=== PATIENT | female | born 1985 | race Caucasian/White ===

== ENCOUNTER → 2023-09-10 06:37 | Day surgery (SDC) | payer BC, SELFPAY | LOC: GI 06:37 | PROVIDERS: ATTENDING PHYSICIAN Internal Medicine Gastroenterology | DX: K29.50 Unspecified chronic gastritis without bleeding (principal); K22.89 Other specified disease of esophagus; R13.10 Dysphagia, unspecified; R10.13 Epigastric pain | CPT/HCPCS: 43239; 88305; 88342 ==

== ENCOUNTER → 2023-10-06 09:23 | Outpatient (REF) | payer BC, SELFPAY | LOC: HWRAD 09:23 | PROVIDERS: ATTENDING PHYSICIAN Internal Medicine Gastroenterology; FAMILY PHYSICIAN Family Medicine | DX: R10.13 Epigastric pain (principal) | CPT/HCPCS: 74177; Q9967 ==

== ENCOUNTER → 2024-06-22 15:20 | Outpatient (REF) | payer SELFPAY ==
[2024-06-23 18:28] LABS: Hepatitis B Surface Antibody Positive
== END ==
LOC: CLAB 15:20
PROVIDERS: ATTENDING PHYSICIAN Emergency Medicine
DX: Z02.1 Encounter for pre-employment examination (principal)
CPT/HCPCS: 36415; 86706

== ENCOUNTER 2024-09-16 11:28 | Emergency (ER) | payer BC, SELFPAY ==
[2024-09-16 11:29] VITALS: BP 162/113
[2024-09-16 11:59] VITALS: BMI 22.0
--- NOTE | 2024-09-16 12:10 | ED.GENMED ---
History of Present Illness
General
Chief Complaint: Abdominal Pain
Time Seen by Provider: 09/16/24 11:57
History of Present Illness
History of Present Illness:
39-year-old woman presenting to the emergency department abdominal pain. Patient states that for the past year she has had vague right upper quadrant abdominal pain. She had a full workup done including EGD ultrasound and CT scan did not show
anything acute. Last week she noticed some vague back pain at that was a kidney stone so she stayed hydrated. Yesterday after eating fish tacos she noticed that she had worsening right upper quadrant pain with nausea. No fevers chills. No
vomiting. No diarrhea. No alcohol use. No medication adjustments. No issues with her gallbladder that she is aware of. She did finish her period 2 days ago.
Past History
Past History
ED Past Medical History: Hypothyroidism
ED Past Surgical History: None
Social History
Tobacco: Non-smoker
Phy Exam
Physical Exam
Physical Exam:
GENERAL: in no acute distress
HEENT: normocephalic, extraocular movements intact, moist oral mucosa
NECK: normal inspection
RESPIRATORY: no respiratory distress, clear to auscultation bilaterally
CARDIOVASCULAR: regular rate and rhythm
ABDOMEN/: soft, non-distended, right upper quadrant tenderness palpation with guarding, no CVA tenderness
EXTREMITIES: non-tender, no edema/swelling
NEUROLOGIC: awake and alert, moves all extremities
SKIN: warm
Course
Orders/Labs/Results
Orders:
Orders
09/16/24 12:09
Ondansetron Orally Disint [Zofran Odt (Orally Disintegrating)] 4 mg PO NOW STA
US Abdomen Complete/Upper Urgent
Comment:
Reason For Exam: RUQ pain
09/16/24 12:10
Test Result ONCE
09/16/24 12:25
Complete Blood Count/With Diff Urgent
Comprehensive Metabolic Panel Urgent
HCG, Serum Qualitative Screen Urgent
Lipase Urgent
Urinalysis Reflex To Culture Urgent
Date Specimen was Collected: 09/16/24
Time Specimen was Collected: 12:20
Urine Microscopic Reflex Cult Urgent
Abnormal Lab Results
09/16/24
12:25
MPV 11.0 H fL
(7.4-10.4)
Glucose 107 H mg/dl
(70-99)
Ur Occult Blood Reflex 4+ A
(Negative)
Urine RBC 7-10 A /HPF
(0-2)
Urine Bacteria (Reflex) Few A
(Negative)
09/16/24 12:25
09/16/24 12:25
Vital Signs
Initial and Last Documented VS:
Initial Vital Signs
Temp Pulse Resp BP Pulse Ox
98.3 F 106 16 162/113 99
09/16/24 11:29 09/16/24 11:29 09/16/24 11:29 09/16/24 11:29 09/16/24 11:29
Last Documented Vital Signs
Temp Pulse Resp BP Pulse Ox
98.3 F 106 16 162/113 99
09/16/24 11:29 09/16/24 11:29 09/16/24 11:29 09/16/24 11:29 09/16/24 11:29
MDM/Problems Addressed
Differential Diagnosis Includes:
Patient is a 39-year-old woman presenting to the emergency department with right upper quadrant abdominal pain with associated nausea that has worsened for the past day. Vitals unremarkable and exam does show right upper quadrant tenderness to
palpation with guarding. Differential consists of cholecystitis versus biliary colic versus pancreatitis versus urine or kidney stone though less likely. Will check blood work urine ultrasound and give antiemetics. I did offer pain control
however patient declined at this time.
*Critical Care Note
Total Time (30-74mins, 75-104mins- exclusive of procedures): Not Applicable
Update Note
Update Note:
On reevaluation nausea has improved. Blood work is unremarkable. Ultrasound is negative. She did have some blood in her urine. This is likely consistent from the kidney stone that she was having earlier. There is no hydronephrosis and normal
creatinine. Patient is tolerating p.o. Will discharge patient at this time with follow-up and return precautions
ED Attending Note
-
Portions of this chart may have been created with voice recognition software.� Occasional wrong word or��sound alike� substitutions may have occurred due to the inherent limitations of voice recognition software.
Discharge Plan
Departure
Patient Disposition: Home (Routine Discharge)
Date of Disposition: 09/16/24
Time of Disposition: 14:55
Patient with high blood pressure during this ER visit?: No
Discharge Problem:
Abdominal pain
Instructions: Abdominal Pain
Prescriptions:
New
ondansetron 4 mg tablet,disintegrating
4 mg PO TID PRN (Reason: nausea and vomiting) Qty: 7 0RF
No Action
hydrocodone-acetaminophen 5-325 mg tablet
1 tab PO Q8H PRN (Reason: pain) Qty: 10 0RF
Referrals:
Katie Lozano DO [Family Provider] -
Activity Restrictions/Additional Instructions:
You have been evaluated in the Emergency Department today for abdominal pain. Your evaluation did not show evidence of medical conditions requiring emergent intervention at this time.
Please schedule an appointment with your primary care physician.
Return to the Emergency Department if you experience worsening or uncontrolled pain, fevers 100.4�F or greater, recurrent vomiting, inability to tolerate food or fluids by mouth, bloody stools or vomit, black or tarry stools, or any other concerning
symptoms.
Thank you for choosing us for your care.
Interventions
Interventions:
*Risk Screen - Suicide Last Done: 09/16/24 11:31
*General Assessment Last Done: 09/16/24 11:31
[facility]-Phbpc[facility]-[id number] Assessment Last Done: 09/16/24 12:00
Discharge Date and Time
Print Language: [place]IZ[place]
[2024-09-16] MEDS: ZOFRAN ODT (ORALLY DISINTEGRATING) 4 MG PO (12:25)
[2024-09-16 12:41] LABS: % Basophils 0.2 % (0-2); % Eosinophils 1.2 % (0-6); % Immature Granulocytes 0.2 % (0-0.5); % Lymphocytes 26.2 % (20.5-51.1); % Monocytes 4.7 % (1.7-9.3); % Neutrophils 67.5 % (42.2-75.2); Absolute Eosinophils 0.1 10^3/uL (0-0.7); Absolute Lymphocytes 1.3 10^3/uL (1.2-3.4); Absolute Monocytes 0.2 10^3/uL (0.1-0.6); Absolute Neutrophils 3.4 10^3/uL (1.4-6.5); Hematocrit 38.9 % (37.0-47.0); Hemoglobin 13.4 g/dL (12.0-16.0); Mean Corp Hgb Conc. 34.4 g/dL (33.0-37.0); Mean Corpuscular Volume 87.2 fL (81.0-99.0); Nucleated Red Blood Cells % 0 %; Platelet Count 206 10^3/uL (130-400); Red Blood Cell Count 4.46 10^6/uL (4.20-5.40); Red Cell Dist. Width 12.8 % (11.5-14.5); White Blood Cell Count 5.1 10^3/uL (4.8-10.8)
[2024-09-16 12:51] LABS: HCG, Serum Qualitative Screen Negative
[2024-09-16 12:54] LABS: ALT (SGPT) 18 U/L (0-35); AST (SGOT) 22 U/L (14-36); Albumin 4.4 g/dl (3.5-5.0); Alkaline Phosphatase 87 U/L (38-126); Blood Urea Nitrogen 8 mg/dl (7-17); Calcium 9.4 mg/dl (8.4-10.2); Carbon Dioxide 27 mmol/L (22-30); Chloride 106 mmol/L (98-107); Estimated Creatinine Clearance 105 ml/min; Glucose 107 mg/dl (70-99); Lipase 111 U/L (23-300); Potassium 4.4 mmol/L (3.5-5.1); Sodium 138 mmol/L (135-145); Total Bilirubin 0.6 mg/dl (0.2-1.3); Total Protein 7.1 g/dl (6.3-8.2); eGFR > 60.00
[2024-09-16 13:02] LABS: Urine Albumin Negative (Neg - Trace); Urine Bilirubin Negative (Negative); Urine Character Clear (Clear); Urine Color Yellow; Urine Glucose Negative (Negative); Urine Ketone Negative (Negative); Urine Leukocyte Negative (Negative); Urine Nitrite Negative (Negative); Urine Occult Blood 4+ (Negative); Urine Specific Gravity 1.015 (<1.030); Urine Urobilinogen Negative (Neg - 1+)
[2024-09-16 13:38] LABS: Urine Mucus Few
[2024-09-16 13:39] LABS: Urine Bacteria Few (Negative); Urine White Cell 0-2 /HPF (0-5)
[2024-09-16 15:00] VITALS: BP 117/68
== END 2024-09-16 15:00 | disposition home or self-care (01) ==
LOC: EMR 11:28
PROVIDERS: EMERGENCY PHYSICIAN Student in an Organized Health Care Education/Training Program; FAMILY PHYSICIAN Internal Medicine
DX: R10.11 Right upper quadrant pain (principal); E03.9 Hypothyroidism, unspecified
CPT/HCPCS: 99284; 76700; 80053; 81003; 81015; 83690; 84703; 85025

== ENCOUNTER → 2025-03-15 11:25 | Outpatient (REF) | payer OTHER, SELFPAY ==
[2025-03-15 16:01] LABS: Varicella Zoster IgG (VZV) Positive
== END ==
LOC: OHS 11:25
PROVIDERS: ATTENDING PHYSICIAN Nurse Practitioner Family
DX: Z23 Encounter for immunization (principal)
CPT/HCPCS: 36415; 86480; 86706; 86787